=== PATIENT | male | born 1960 | race Caucasian/White ===

== ENCOUNTER 2020-06-17 16:47 | Emergency (ER) | payer MEDICAID, SELFPAY ==
[~2020-06-17] VITALS: Ht 160 cm; Wt 81.6 kg
[2020-06-17 17:02] VITALS: BP_SYST 160
[2020-06-17 18:57] VITALS: BP_SYST 160
== END 2020-06-17 18:57 | disposition home or self-care (01) ==
LOC: SED 16:47
DX: U07.1 COVID-19 (principal); I10 Essential (primary) hypertension
CPT/HCPCS: 71045; 99283

== ENCOUNTER 2020-06-23 13:46 | Emergency (ER) | payer MEDICAID, SELFPAY ==
[~2020-06-23] VITALS: Ht 167.6 cm; Wt 74.8 kg
[2020-06-23 14:10] VITALS: BP_SYST 148
[2020-06-23 15:12] VITALS: BP_SYST 148
== END 2020-06-23 15:12 | disposition home or self-care (01) ==
LOC: SED 13:46
DX: B34.9 Viral infection, unspecified (principal); I10 Essential (primary) hypertension; Z20.822 Contact with and (suspected) exposure to COVID-19
CPT/HCPCS: 36415; 99283

== ENCOUNTER 2022-02-10 12:40 | Emergency (ER) | payer MEDICAID ==
[~2022-02-10] VITALS: Ht 167.6 cm; Wt 74.8 kg
[2022-02-10 12:54] VITALS: BP_SYST 164
[2022-02-10] MEDS ORDERED: IBUPROFEN 800 MG TABLET ONE (13:04)
[2022-02-10] MEDS ORDERED: cefTRIAXone 1 GM IVPB PREMIX 50 ML IV ONE ×2 (13:15→15:30)
[2022-02-10] MEDS ORDERED: NACL 0.9% 2,000 ML IV ONE (13:15)
[2022-02-10 14:21] LABS: BASOPHILS % (AUTO) 0.4 % (0.0-2.0); EOSINOPHILS # (AUTO) 0.2 K/uL (0.0-0.4); EOSINOPHILS % (AUTO) 2.7 % (0.0-4.0); HEMOGLOBIN 14.7 g/dL (14.0-18.0); LYMPHOCYTES # (AUTO) 0.6 K/uL (1.0-5.5); LYMPHOCYTES % (AUTO) 9.6 % (20.5-51.5); MEAN CORPUSCULAR HEMOGLOBIN 31 pg (27-31); MEAN CORPUSCULAR HGB CONC 34 % (32-36); MEAN CORPUSCULAR VOLUME 92 fL (79.0-98.0); MONOCYTES # (AUTO) 0.7 K/uL (0.0-1.0); MONOCYTES % (AUTO) 11.3 % (1.7-9.3); NEUTROPHILS # (AUTO) 4.8 K/uL (1.8-7.7); PLATELET COUNT (AUTO) 178 K/uL (130-430); RED BLOOD CELL COUNT(AUTO) 4.69 MIL/uL (4.2-6.2); WHITE BLOOD COUNT (AUTO) 6.3 K/uL (4.8-10.8)
[2022-02-10 14:53] LABS: CALCIUM 8.3 mg/dL (8.4-11.0); CREATININE 0.84 mg/dL (0.55-1.30); POTASSIUM 3.6 mmol/L (3.5-5.1)
[2022-02-10 14:59] LABS: ALBUMIN 3.7 g/dL (3.4-4.8); TOTAL BILIRUBIN 0.5 mg/dL (0.0-1.0)
[2022-02-10] MEDS ORDERED: cefTRIAXone 1 GM VIAL ONE (15:31)
[2022-02-10] MEDS ORDERED: AUG875 PO (15:31)
[2022-02-10] MEDS ORDERED: MED4 PO (15:31)
[2022-02-10 16:37] VITALS: BP_SYST 127
== END 2022-02-10 16:37 | disposition home or self-care (01) ==
LOC: SED 12:40
DX: J20.9 Acute bronchitis, unspecified (principal); R05.9 Cough, unspecified; R09.81 Nasal congestion; R07.89 Other chest pain; I10 Essential (primary) hypertension; Z79.899 Other long term (current) drug therapy; Z20.822 Contact with and (suspected) exposure to COVID-19
CPT/HCPCS: 99284; 96365; 71045; 96367; 87426; 80053; 85025; 87040; 36415; 83605; J0696 ×2; J1956